=== PATIENT | female | born 1940 | race Caucasian/White ===

== ENCOUNTER 2016-08-24 | Inpatient (IN) | payer MEDICARE, BC ==
[~2016-08-24] MED LIST: ACETAMINOPHEN500 M4 PO; ALPRAZOLAM0.25 M3 PO; ANTI-DIARRHEAL2 M3 PO; ASPIRIN325 M3 PO; CENTRUM SILVER1 EAC3 PO; CHLORTABS4 MG PO; CYCLOBENZAPRINE10 M1 PO; HYDROCODON-ACE1 EA16 PO; JANUVIA25 M1 PO; K-TAB ER10 MEQ PO; LANTUS SOL100 UNIT/1 SC; LASIX40 M1 PO; LISINOPRIL-HCT1 EAC2 PO; NEURONTIN300 M1 PO; PRILOSEC OTC20 M1 PO; ROCALTROL0.25 MC1 PO; ROXICODONE5 M2 PO; STOOL SOFTENER250 M2 PO; TOPROL XL25 M1 PO; ULTRAM50 M1 PO; VITAMIN D32000 UNI2 PO; WOMEN'S MULTI200 MCG PO; ZOCOR20 M1 PO; [UNRECOGNIZED DRUG - OTHER]; [UNRECOGNIZED DRUG - OTHER] PO
[2016-08-26] MEDS ORDERED: ASPIRIN EC325 M1 PO (09:47)
[2016-08-26] MEDS ORDERED: OXYCODONE HCL5 M1 PO (09:48)
[2016-08-26] MEDS ORDERED: ULTRAM50 M1 PO (09:56)
== END 2016-08-26 12:15 | disposition home health service (06) | DRG 470 ==
DX: M17.12 Unilateral primary osteoarthritis, left knee (principal); E11.22 Type 2 diabetes mellitus with diabetic chronic kidney disease; D64.9 Anemia, unspecified; Z68.41 Body mass index [BMI] 40.0-44.9, adult; E66.01 Morbid (severe) obesity due to excess calories; F41.9 Anxiety disorder, unspecified; G47.30 Sleep apnea, unspecified; K21.9 Gastro-esophageal reflux disease without esophagitis; K44.9 Diaphragmatic hernia without obstruction or gangrene; I12.9 Hypertensive chronic kidney disease with stage 1 through stage 4 chronic kidney disease, or unspecified chronic kidney disease; N18.9 Chronic kidney disease, unspecified